=== PATIENT | female | born 1975 | race American Indian/Alaskan Native ===

== ENCOUNTER 2017-05-14 12:34 | Emergency (ER) | payer OTHER ==
[2017-05-14 12:35] VITALS: BMI 27.4
[2017-05-14 12:44] VITALS: BP 140/65; PULSE 86; RESP 18; TEMP 98.5; O2SAT 99
--- NOTE | 2017-05-14 13:43 | ED PDOC ---
HPI: Dental Pain/Injury Time Seen by Provider: 05/14/17 12:42 Chief Complaint (Nursing): Dental Pain Chief Complaint (Provider): Right lower mouth pain History Per: Patient History/Exam Limitations: no limitations Onset/Duration Of Symptoms: Days Current Symptoms Are (Timing): Still Present Quality: "Pain" Additional Complaint(s): The patient is a 42 yo female, presents to the ED for evaluation of continued right lower mouth pain present for the past week. Patient reports initially for her symptoms, she visited [facility] and was give antibiotics and informed to follow up with a dentist. Patient states she followed up with a dentist and was then told to go to an oral surgeon. Patient presents today due to persistent pain and states she has not been able to find an oral surgeon. Patient also states she has not finished the antibiotics course prescribed to her during her [facility] visit. She reports taking Naprosyn for pain with minimal relief. Of note, contrary to patient's prior records, she states she is not allergic to acetaminophen. Patient offers no additional medical complaints. Past Medical History Reviewed: Historical Data, Nursing Documentation, Vital Signs Vital Signs: Last Vital Signs Temp 98.5 F 05/14/17 12:41 Pulse 86 05/14/17 12:41 Resp 18 05/14/17 12:41 BP 140/65 05/14/17 12:41 Pulse Ox 99 05/14/17 12:41 - Medical History PMH: Anemia, Back Problems, Hyperthyroidism Denies: Anxiety, Bipolar Disorder, Depression, Personality Disorder, Post Traumatic Stress Disorder, Chronic Kidney Disease, Schizophrenia - Surgical History Surgical History: No Surg Hx - Family History Family History: States: Unknown Family Hx - Immunization History Hx Tetanus Toxoid Vaccination: No Hx Influenza Vaccination: No Hx Pneumococcal Vaccination: No - Home Medications Home Medications: Ambulatory Orders Medication Instructions Recorded Amoxicillin 500 mg PO TID #24 tab 05/02/17 Lidocaine 2% Viscous 15 ml MM BID PRN #100 ml 05/02/17 Naproxen 500 mg PO BID PRN #20 tab 05/02/17 - Allergies Allergies/Adverse Reactions: Allergies Allergy/AdvReac Type Severity Reaction Status Date / Time acetaminophen Allergy ANAPHYLAXIS Verified 05/02/17 11:25 [From Darvocet-N] propoxyphene napsylate Allergy ANAPHYLAXIS Verified 05/02/17 11:25 [From Darvocet-N] tramadol Allergy ANAPHYLAXIS Verified 05/02/17 11:25 Review of Systems ROS Statement: Except As Marked, All Systems Reviewed And Found Negative Constitutional: Negative for: Fever, Chills ENT: Positive for: Mouth Pain, Mouth Swelling Physical Exam - Reviewed Nursing Documentation Reviewed: Yes Vital Signs Reviewed: Yes - Physical Exam Appears: Positive for: Well, Non-toxic, No Acute Distress Head Exam: Positive for: ATRAUMATIC, NORMAL INSPECTION, NORMOCEPHALIC Skin: Positive for: Normal Color, Dry Eye Exam: Positive for: Normal appearance ENT: Positive for: Other (right lower jaw soft tissue swelling; no signs of abscess noted) Neck: Positive for: Normal, Supple Respiratory: Negative for: Respiratory Distress Neurologic/Psych: Positive for: Alert, Oriented. Negative for: Motor/Sensory Deficits - ECG O2 Sat by Pulse Oximetry: 99 (RA) Pulse Ox Interpretation: Normal Medical Decision Making Medical Decision Making: Time: 1300 Impression: Dental pain Plan: -- Patient given prescription for precocet and augmentin. Patient also informed on the need to follow up with oral surgeon for further evaluation of her mouth pain. Patient expresses understanding and is agreeable with plan. Patient stable for d/c home. Scribe Attestation: Documented by Alise Tinajero acting as a scribe for NII Cortez Provider Attestation: All medical record entries made by the Scribe were at my direction and personally dictated by me. I have reviewed the chart and agree that the record accurately reflects my personal performance of the history, physical exam, medical decision making, and the department course for this patient. I have also personally directed, reviewed, and agree with the discharge instructions and disposition. Disposition - Clinical Impression Clinical Impression: Dental caries - Disposition Disposition: Routine/Home Disposition Time: 13:40 Condition: STABLE Additional Instructions: Please follow-up with dentist. Instructions: Toothache (ED) Forms: [employer] (German)
== END 2017-05-14 13:49 | disposition home or self-care (01) ==
LOC: H.ER 12:34
DX: K08.89 Other specified disorders of teeth and supporting structures (principal); E05.90 Thyrotoxicosis, unspecified without thyrotoxic crisis or storm